=== PATIENT | male | born 1990 | race Caucasian/White ===

== ENCOUNTER 2017-03-26 15:24 | Emergency (ER) | payer MEDICAID, OTHER ==
[~2017-03-26] VITALS: Ht 182.9 cm; Wt 106.5 kg
[2017-03-26 16:03] VITALS: Ht 182.9 cm; Wt 106.5 kg
--- NOTE | 2017-03-26 16:50 | ERA ---
ER Documentation Chief Complaint Date/Time DATE: 03/26/17 TIME: 16:50 Chief Complaint LEFT FLANK PAIN C/O PAIN SCALE 10/10 HPI The patient is a 27-year-old male, presenting to the ER because of left flank, left upper quadrant abdominal pain intermittently for 2 weeks, the pain is better if he pushed on the abdomen. He denies fever, chills, neck pain, similar symptoms previously, nausea, vomiting, dysuria, diarrhea. He also complained of sore throat for 2 days and congestion intermittently for 2 weeks. He smokes, denies drinking, using any illicit drug Past medical history/surgical history: None ROS All systems reviewed and are negative except as per history of present illness. Medications Home Meds Active Scripts Ibuprofen* (Motrin*) 600 Mg Tab, 600 MG PO Q6, #20 TAB Prov:KURT ALFRED MD 03/26/17 Allergies Allergies: Coded Allergies: No Known Allergy (Unverified , 03/26/17) Physical Exam Vitals Vital Signs Date Time Temp Pulse Resp B/P Pulse Ox O2 Delivery O2 Flow Rate FiO2 03/26/17 16:03 99.3 83 18 144/82 98 Physical Exam Const: No acute distress. Head: Atraumatic. Eyes: Normal Conjunctiva. ENT: Normal External Ears, Nose and Mouth. Neck: Full range of motion. No meningismus. Resp: Clear to auscultation bilaterally. Cardio: Regular rate and rhythm. Abd: Soft, non distended, normal bowel sounds, Mild left upper quadrant and mild left flank tenderness, no rigidity, rebound, CVA tenderness Skin: No petechiae or rashes. Back: No midline or flank tenderness. Ext: No cyanosis, or edema. Neur: Awake and alert. No focal deficit Psych: Normal Mood and Affect. Result Diagram: 03/26/17 1719 03/26/17 171 Results 24 hrs Laboratory Tests Test 03/26/17 17:00 03/26/17 17:19 Urine Color YELLOW Urine Clarity CLEAR Urine pH 9.0 Urine Specific [place] 1.030 Urine Ketones NEGATIVEmg/dL Urine Nitrite NEGATIVEmg/dL Urine Bilirubin NEGATIVEmg/dL Urine Urobilinogen NEGATIVEmg/dL Urine Leukocyte Esterase NEGATIVELeu/ul Urine Microscopic RBC 2/HPF Urine Microscopic WBC 0/HPF Urine Mucus FEW/HPF Urine Hemoglobin NEGATIVEmg/dL Urine Glucose NEGATIVEmg/dL Urine Total Protein 1+mg/dl White Blood Count 13.010^3/ul Red Blood Count 5.5410^6/ul Hemoglobin 16.1g/dl Hematocrit 47.2% Mean Corpuscular Volume 85.2fl Mean Corpuscular Hemoglobin 29.1pg Mean Corpuscular Hemoglobin Concent 34.1g/dl Red Cell Distribution Width 13.5% Platelet Count 59849^3/UL Mean Platelet Volume 10.4fl Neutrophils % 76.4% Lymphocytes % 16.7% Monocytes % 6.0% Eosinophils % 0.5% Basophils % 0.2% Nucleated Red Blood Cells % 0.0/100WBC Neutrophils # 9.910^3/ul Lymphocytes # 2.210^3/ul Monocytes # 0.810^3/ul Eosinophils # 0.110^3/ul Basophils # 0.010^3/ul Nucleated Red Blood Cells # 0.010^3/ul Sodium Level 140mmol/L Potassium Level 3.5mmol/L Chloride Level 107mmol/L Carbon Dioxide Level 24mmol/L Anion Gap 13 Blood Urea Nitrogen 11mg/dl Creatinine 0.74mg/dl Glucose Level 95mg/dl Calcium Level 10.0mg/dl Total Bilirubin 0.6mg/dl Direct Bilirubin 0.00mg/dl Indirect Bilirubin 0.6mg/dl Aspartate Amino Transf (AST/SGOT) 25IU/L Alanine Aminotransferase (ALT/SGPT) 49IU/L Alkaline Phosphatase 89IU/L Total Protein 8.7g/dl Albumin 4.7g/dl Globulin 4.00g/dl Albumin/Globulin Ratio 1.17 Lipase 80U/L Current Medications Medications (Trade) Dose Ordered Sig/Fely Route PRN Reason Start Time Stop Time Status Last Admin Dose Admin Sodium Chloride (NS) 1,000 ml @ 1,000 mls/hr Q1H STAT IV 03/26/17 16:55 03/26/17 17:54 DC 03/26/17 17:39 Morphine Sulfate (morphine) 4 mg ONCE STAT IV 03/26/17 16:55 03/26/17 16:56 DC 03/26/17 17:38 Ondansetron HCl (Zofran Inj) 4 mg ONCE STAT IV 03/26/17 16:55 03/26/17 16:56 DC 03/26/17 17:40 Procedures/[facility] [address] [address] [address] Radiology Main Line: [phone] DIAGNOSTIC IMAGING REPORT Patient: SHASTA VERDIN : 1990 Age: 27 Sex: M [id number] DOS: 03/26/17 1655 Ordering MD: KURT ALFRED MD Location: [facility] Room/Bed: PROCEDURE: CT Abdomen and Pelvis without contrast. CLINICAL INDICATION: Abdominal pain. Left abdominal pain. TECHNIQUE: CT scan of the abdomen and pelvis without contrast was performed on a multidetector high-resolution CT scanner. The patient was scanned without intravenous contrast. Coronal and sagittal reformatted images were obtained from the axial source images. Images were reviewed on a high-resolution PACS workstation. The total exam CTDI equals 20.46 mGy and the total exam DLP equals 1189.25 mGy-cm. One or more of the following dose reduction techniques were used: - Automated exposure control. - Adjustment of the mA and/or kV according to patient size. - Use of iterative reconstruction technique. COMPARISON: None. FINDINGS: The lung bases are clear. The heart size is normal, without pericardial thickening or effusion. The liver is normal in size and density without evidence of focal solid mass or intrahepatic biliary dilatation. The spleen is normal in size and homogeneous in density. The stomach is partially collapsed, but is grossly unremarkable. The pancreas as visualized is normal. The gallbladder and biliary tree are unremarkable and there is no evidence for biliary dilatation. The adrenal glands are symmetric and normal. The kidneys normal and symmetric in size, morphology, and attenuation. A punctate nonobstructing left renal calculus is seen in the interpolar region (series 3, image 51). No hydronephrosis or hydroureter. No ureteral calculus is seen. No perirenal collection or significant perirenal inflammatory changes are seen. The aorta is of normal caliber. There is no retroperitoneal lymphadenopathy. The bello hepatis region is clear. The bowel and mesentery, as visualized, are unremarkable. No free air or free fluid is identified. The small bowel loops situated within the pelvis are unremarkable. The unenhanced urinary bladder is markedly under distended and therefore not well evaluated, but is grossly unremarkable. The prostate gland is mildly enlarged, measuring up to 5 cm in transverse dimension. The seminal vesicles grossly unremarkable. The pelvic sidewalls and inguinal regions are clear. The sigmoid colon and rectum are remarkable for sigmoid diverticulosis. No mass or adenopathy is seen. No acute inflammation is identified at this time. The surrounding osseous structures are unremarkable. No osteolytic or osteoblastic lesion is detected. IMPRESSION: 1. No evidence of acute process within the abdomen or pelvis. 2. Punctate nonobstructing left interpolar renal calculus. No hydronephrosis, hydroureter, or perirenal collection/inflammation. 3. Mildly enlarged prostate gland. RPTAT: [facility] Physician Carol Date Time Electronically viewed and signed by Physician Carol on 03/26/2017 18: 38 RC/ CC: KURT ALFRED MD MEDICAL MAKING DECISION: The patient is a 27-year-old male, presenting with acute renal colic. He was treated with morphine 4 mg IV for pain and Zofran 4 mg IV for nausea with good response. The differential diagnoses considered include but are not limited to cholelithiasis, cholecystitis, cystitis, pancreatitis, hepatitis, gastritis, peptic ulcer disease, gastric ulcer, appendicitis, diverticulitis, cholangitis, choledocholithiasis, partial small bowel obstruction. Departure Diagnosis: Primary Impression: Renal colic on left side Condition: Good Comments He was discharged with Motrin I discussed the findings with the patient. I advised the patient to follow-up with the primary physician in about 1-2 days, sooner if needed and return if any concern. The patient's blood pressure was elevated (>120/80) but appears stable without evidence of hypertension emergency or urgency. The patient was counseled about the risks of hypertension and urged to pursue outpatient monitoring and therapy within a week with their primary care physician. KURT ALFRED MD Mar 26, 2017 16:50
[2017-03-26] MEDS ORDERED: SOD CHLORIDE 0.9% 1,000 ML IV STA (16:55)
[2017-03-26] MEDS ORDERED: ONDANSETRON 4 MG INJ IV STA (16:55)
[2017-03-26] MEDS ORDERED: morphine 4 MG/ML VIAL IV STA (16:55)
[2017-03-26 17:51] LABS: BASOPHILS % 0.2 % (0.0-2.0); EOSINOPHILS # 0.1 10^3/ul (0.0-0.5); EOSINOPHILS % 0.5 % (0.0-7.0); HEMATOCRIT 47.2 % (42.0-52.0); HEMOGLOBIN 16.1 g/dl (14.0-18.0); LYMPHOCYTES # 2.2 10^3/ul (0.8-2.9); LYMPHOCYTES % 16.7 % (15.0-51.0); MEAN CORPUSCULAR HEMOGLOBIN 29.1 pg (29.0-33.0); MEAN CORPUSCULAR HGB CONC 34.1 g/dl (32.0-37.0); MEAN CORPUSCULAR VOLUME 85.2 fl (82.0-101.0); MEAN PLATELET VOLUME 10.4 fl (7.4-10.4); MONOCYTE # 0.8 10^3/ul (0.3-0.9); NEUTROPHIL # 9.9 10^3/ul (1.6-7.5); NEUTROPHILS % 76.4 % (39.0-77.0); PLATELET COUNT 305 10^3/UL (140-415); RED BLOOD COUNT 5.54 10^6/ul (4.70-6.10); RED CELL DISTRIBUTION WIDTH 13.5 % (11.5-14.5)
[2017-03-26 18:11] LABS: ALBUMIN 4.7 g/dl (3.3-4.9); ALBUMIN/GLOBULIN RATIO 1.17; BILIRUBIN,INDIRECT 0.6 mg/dl (0-1.1); BILIRUBIN,TOTAL 0.6 mg/dl (0.2-1.3); CREATININE 0.74 mg/dl (0.61-1.24); POTASSIUM 3.5 mmol/L (3.5-5.1); TOTAL PROTEIN 8.7 g/dl (6.1-8.1)
[2017-03-26 18:14] LABS: ADD UMIC YES; UR ASCORBIC ACID NEGATIVE (NEGATIVE); UR BILIRUBIN (Dip) NEGATIVE (NEGATIVE); UR BLOOD (Dip) NEGATIVE (NEGATIVE); UR CLARITY CLEAR (CLEAR); UR COLOR YELLOW (YELLOW); UR GLUCOSE (Dip) NEGATIVE (NEGATIVE); UR KETONES (Dip) NEGATIVE (NEGATIVE); UR LEUKOCYTE ESTERASE (Dip) NEGATIVE Leu/ul (NEGATIVE); UR MUCUS FEW /HPF (NONE SEEN); UR NITRITE (Dip) NEGATIVE (NEGATIVE); UR RBC 2 /HPF (0-5); UR TOTAL PROTEIN (Dip) 1+ mg/dl (NEGATIVE); UR UROBILINOGEN (Dip) NEGATIVE (NEGATIVE)
--- NOTE | 2017-03-26 18:39 | RADRPT ---
PROCEDURE: CT Abdomen and Pelvis without contrast. CLINICAL INDICATION: Abdominal pain. Left abdominal pain. TECHNIQUE: CT scan of the abdomen and pelvis without contrast was performed on a multidetector hig h-resolution CT scanner. The patient was scanned without intravenous contrast. Coronal and sagittal reformatted images were obtained from the axial source images. Images were reviewed on a high-resol [employer] PACS workstation. The total exam CTDI equals 20.46 mGy and the total exam DLP equals 1189.25 m Gy-cm. One or more of the following dose reduction techniques were used: - Automated exposure control. - Adjustment of the mA and/or kV according to patient size. - Use of iterative reconstruction technique. COMPARISON: None. FINDINGS: The lung bases are clear. The heart size is normal, without pericardial thickening or effusion. The liver is normal in size and density without evidence of focal solid mass or intrahepatic biliary dilatation. The spleen is normal in size and homogeneous in density. The stomach is partially col lapsed, but is grossly unremarkable. The pancreas as visualized is normal. The gallbladder and macy iary tree are unremarkable and there is no evidence for biliary dilatation. The adrenal glands are symmetric and normal. The kidneys normal and symmetric in size, morphology, and attenuation. A punc russell nonobstructing left renal calculus is seen in the interpolar region (series 3, image 51). No hy dronephrosis or hydroureter. No ureteral calculus is seen. No perirenal collection or significant pe rirenal inflammatory changes are seen. The aorta is of normal caliber. There is no retroperitoneal lymphadenopathy. The bello hepatis earl on is clear. The bowel and mesentery, as visualized, are unremarkable. No free air or free fluid is identified. The small bowel loops situated within the pelvis are unremarkable. The unenhanced urinary bladder is markedly under distended and therefore not well evaluated, but is grossly unremarkable. The prostat e gland is mildly enlarged, measuring up to 5 cm in transverse dimension. The seminal vesicles gross ly unremarkable. The pelvic sidewalls and inguinal regions are clear. The sigmoid colon and rectum are remarkable for sigmoid diverticulosis. No mass or adenopathy is seen. No acute inflammation is identified at this time. The surrounding osseous structures are unremarkable. No osteolytic or osteoblastic lesion is detect ed. IMPRESSION: 1. No evidence of acute process within the abdomen or pelvis. 2. Punctate nonobstructing left interpolar renal calculus. No hydronephrosis, hydroureter, or perire nal collection/inflammation. 3. Mildly enlarged prostate gland. RPTAT: [facility] Paco Leon, Physician Date Time Electronically viewed and signed by Paco Leon, Physician on 03/26/2017 18:38 RC/
[2017-03-26] MEDS ORDERED: IBUP-1542 PO (18:47)
[2017-03-26 19:00] VITALS: BP 133/86; PULSE 71; RESP 14; TEMP 98.2
== END 2017-03-26 18:59 | disposition home or self-care (01) ==
LOC: FTE 15:24
DX: N23 Unspecified renal colic (principal)
CPT/HCPCS: 36415; 74176; 80053; 81001; 83690; 85025; 96374; 96375; J2270; J2405; J7030; Z7502